=== PATIENT | male | born 2000 | race Caucasian/White ===

== ENCOUNTER 2025-05-27 09:35 | Emergency (ER) | payer OTHER ==
[~2025-05-27] VITALS: Ht 172.7 cm; Wt 85.6 kg
[2025-05-27] MEDS ORDERED: GNPCAP31 PO (09:56)
[2025-05-27] MEDS ORDERED: PRED10PA2 PO (09:56)
[2025-05-27] MEDS ORDERED: MUCI1TAB16 PO (09:56)
[2025-05-27] MEDS: OMEPRAZOLE 20MG CAP PO ONE (11:23)
[2025-05-27] MEDS: IBUPROFEN 600 MG TAB PO ONE (11:23)
[2025-05-27] MEDS ORDERED: AMOX875T2 PO (12:39)
[2025-05-27] MEDS ORDERED: OMEP-173 PO (12:43)
[2025-05-27 12:47] VITALS: BP 140/89; TEMP 97.7; O2SAT 98
== END 2025-05-27 12:59 | disposition home or self-care (01) ==
LOC: M ED 09:35
DX: J01.80 Other acute sinusitis (principal); B34.1 Enterovirus infection, unspecified; K21.9 Gastro-esophageal reflux disease without esophagitis; Z91.018 Allergy to other foods; Z79.2 Long term (current) use of antibiotics; Z79.899 Other long term (current) drug therapy; Z79.52 Long term (current) use of systemic steroids